=== PATIENT | female | born 1955 | race Caucasian/White ===

== ENCOUNTER 2024-02-06 08:52 | Day surgery (SDC) | payer MEDICARE, BC ==
[2024-02-06] MEDS ORDERED: Sodium Chloride 0.9% 10 ML Syringe FLUSH PRN (09:30)
[2024-02-06] MEDS ORDERED: Lidocaine 2% 20 ML MDV ONE (09:45)
[2024-02-06] MEDS ORDERED: Propofol 200 MG/20 ML SDV ONE (09:45)
[2024-02-06] MEDS ORDERED: Ketamine 200 MG/20 ML MDV ONE (09:45)
[2024-02-06] MEDS ORDERED: fentaNYL 50 MCG/ML SDV ONE (09:45)
[2024-02-06] MEDS ORDERED: Ondansetron 4 MG/2 ML SDV ONE (10:17)
== END 2024-02-06 11:45 | disposition home or self-care (01) ==
LOC: CC.SDS 08:52
PROVIDERS: ATTEND Family Medicine
DX: K21.9 Gastro-esophageal reflux disease without esophagitis (principal); F41.9 Anxiety disorder, unspecified; Z79.899 Other long term (current) drug therapy
CPT/HCPCS: 00731; 88305; J2704; J3010; J3490